=== PATIENT | male | born 1960 | race Two or more races ===

== ENCOUNTER 2017-04-28 12:51 | Day surgery (SDC) | payer OTHER ==
[~2017-04-28] VITALS: Ht 177.8 cm; Wt 80.7 kg
[~2017-04-28 12:51] MED LIST: ASPIRIN81 M2 PO; B-12500 MC1 SL; FOLIC ACID1 MG PO; LIPITOR80 MG PO; MULTIPLE VITAM1 EAC1 PO; NEURONTIN300 MG PO; VITAMIN B-1100 MG PO
[2017-04-28 13:25] VITALS: BP 117/53
[2017-04-28 20:22] VITALS: BP 89/55
[2017-04-28 20:45] VITALS: BP 112/68
== END 2017-04-28 20:55 | disposition home or self-care (01) ==
LOC: SDC 12:51
DX: H33.42 Traction detachment of retina, left eye (principal); F17.210 Nicotine dependence, cigarettes, uncomplicated
CPT/HCPCS: J0690; J1100; J2405; J2710; J3010; J3300